=== PATIENT | male | born 1960 | race Hispanic/Latino ===

== ENCOUNTER 2023-03-05 06:37 | Day surgery (SDC) | payer MEDICARE ==
[2023-03-03 15:08] VITALS: BMI 23.8
[2023-03-05] MEDS ORDERED: PROPOFOL 20 ML ONE ×3 (08:18→09:20)
[2023-03-05] MEDS ORDERED: Lidocaine 1% PF 5 ML VIAL ONE (08:19)
[2023-03-05] MEDS ORDERED: fentaNYL 50 mcg/mL 1 mL Vial ONE (08:53)
[2023-03-05] MEDS ORDERED: PHENYLEPHRINE-NS 100 MCG/ML 10 ML SYRINGE ONE (09:10)
[2023-03-05 09:59] LABS: #Eosinphils 0.3 10x3/uL (0.0-0.5); #Monocytes 0.9 10x3/uL (0.0-1.1); #Neutrophils 3.6 10x3/uL (1.5-8.4); %Basophils 0.7 % (0.0-2.0); %Eosinophils 4.5 % (0.0-6.0); %Lymphocytes 15.5 % (18.0-47.0); %Monocytes 16.3 % (0.0-10.0); %Neutrophils 62.8 % (40.0-75.0); Hematocrit 35.7 % (38.8-50.0); Hemoglobin 12.1 g/dL (13.5-17.5); Mean Corpuscular HGB CONC 33.9 g/dL (32.0-36.0); Mean Corpuscular Hemoglobin 30.5 pg (27.0-33.0); Mean Corpuscular Volume 89.9 fl (81.2-95.1); Mean Platelet Volume 9.2 fl (7.4-10.4); Platelet Count 168 10x3/uL (150-450); RBC Distribution Width 14.6 % (11.5-14.5); Red Blood Cell (RBC) Count 3.97 10x6/uL (4.32-5.72); White Blood Cell (WBC) Count 5.8 10x3/uL (3.5-10.5)
[2023-03-05 10:15] LABS: ALT (SGPT) 32 U/L (8-55); AST (SGOT) 33 U/L (5-34); Albumin 4.1 g/dL (3.5-5.0); Alkaline Phosphatase 44 U/L (40-110); Bilirubin, Direct 0.3 mg/dL (0.1-0.3); Bilirubin, Total 0.6 mg/dL (0.2-1.2); Protein, Total 7.1 g/dL (6.0-8.3)
== END 2023-03-05 10:00 | disposition home or self-care (01) ==
LOC: CSHSDC 06:37
PROVIDERS: ATTEND Internal Medicine Gastroenterology
PROC: 0DBP8ZX Excision of Rectum, Via Natural or Artificial Opening Endoscopic, Diagnostic (ICD-10-PCS; principal; 2023-03-05)
DX: C20 Malignant neoplasm of rectum (principal); K63.89 Other specified diseases of intestine; E11.9 Type 2 diabetes mellitus without complications; I10 Essential (primary) hypertension; E78.5 Hyperlipidemia, unspecified; F41.8 Other specified anxiety disorders; Z79.84 Long term (current) use of oral hypoglycemic drugs; Z79.82 Long term (current) use of aspirin; Z79.899 Other long term (current) drug therapy; Z80.0 Family history of malignant neoplasm of digestive organs; Z86.73 Personal history of transient ischemic attack (TIA), and cerebral infarction without residual deficits
CPT/HCPCS: 45380; 80076; 82378; 85025; J3010; 36415; 88305; J2704

== ENCOUNTER 2023-03-31 12:47 | Outpatient (CLI) | payer MEDICARE ==
[~2023-03-31 12:47] MED LIST: Magnevist 469MG/ML 20 ML VIAL ONE
== END 2023-03-31 12:48 | disposition home or self-care (01) ==
LOC: CSHMRI 12:47
PROVIDERS: ATTEND Internal Medicine
DX: C20 Malignant neoplasm of rectum (principal); M71.552 Other bursitis, not elsewhere classified, left hip
CPT/HCPCS: 72197

== ENCOUNTER 2023-04-01 08:28 | Outpatient (CLI) | payer MEDICARE | END 2023-04-01 08:29 | disposition home or self-care (01) | LOC: CSHCT 08:28 | PROVIDERS: ATTEND Surgery | DX: C18.9 Malignant neoplasm of colon, unspecified (principal); K62.9 Disease of anus and rectum, unspecified; R59.0 Localized enlarged lymph nodes; K80.20 Calculus of gallbladder without cholecystitis without obstruction; N28.89 Other specified disorders of kidney and ureter | CPT/HCPCS: 74177 ==

== ENCOUNTER 2023-04-16 09:28 | Outpatient (CLI) | payer MEDICARE | END 2023-04-16 09:29 | disposition home or self-care (01) | LOC: CSHCT 09:28 | PROVIDERS: ATTEND Internal Medicine | DX: C20 Malignant neoplasm of rectum (principal) | CPT/HCPCS: 71260 ==

== ENCOUNTER 2023-07-30 13:07 | Outpatient (CLI) | payer MEDICARE ==
[2023-07-30] MEDS ORDERED: Magnevist 469MG/ML 20 ML VIAL ONE (13:36)
== END 2023-07-30 13:08 | disposition home or self-care (01) ==
LOC: CSHMRI 13:07
PROVIDERS: ATTEND Radiology Radiation Oncology
DX: C20 Malignant neoplasm of rectum (principal); Z92.21 Personal history of antineoplastic chemotherapy
CPT/HCPCS: 72197; A9579

== ENCOUNTER 2024-04-05 08:09 | Outpatient (CLI) | payer MEDICARE ==
[2024-04-05] MEDS ORDERED: Iopamidol 300 61% 100 ML VIAL FS ONE (09:55)
== END 2024-04-05 08:10 | disposition home or self-care (01) ==
LOC: CSHCT 08:09
PROVIDERS: ATTEND Internal Medicine
DX: C20 Malignant neoplasm of rectum (principal); Z98.890 Other specified postprocedural states; Z92.3 Personal history of irradiation; Z93.3 Colostomy status; K80.20 Calculus of gallbladder without cholecystitis without obstruction; I31.39 Other pericardial effusion (noninflammatory)
CPT/HCPCS: 71260; 74177; 82565; Q9967

== ENCOUNTER 2024-09-20 10:10 | Outpatient (CLI) | payer OTHER ==
[2024-09-20] MEDS ORDERED: Iopamidol 300 61% 100 ML VIAL FS ONE (11:08)
== END 2024-09-20 10:11 | disposition home or self-care (01) ==
LOC: CSHCT 10:10
PROVIDERS: ATTEND Internal Medicine
DX: C20 Malignant neoplasm of rectum (principal); K76.9 Liver disease, unspecified
CPT/HCPCS: 36415; 71260; 74177; 82565